=== PATIENT | female | born 1995 | race Two or more races ===

== ENCOUNTER 2020-02-12 01:34 | Emergency (ER) | payer SELFPAY ==
[~2020-02-12] VITALS: Ht 167.6 cm; Wt 63.0 kg
[2020-02-12] MEDS ORDERED: SODIUM CHLORIDE 0.9% 1,000 ML IV ONE (03:04)
[2020-02-12] MEDS ORDERED: ONDANSETRON HCL 4MG/2ML INJ IV STA (03:04)
[2020-02-12] MEDS ORDERED: KETOROLAC 30MG/ML VIAL IV STA (03:04)
[2020-02-12] MEDS ORDERED: FAMOTIDINE 20MG/2ML VIAL IV ONE (03:15)
[2020-02-12 03:22] LABS: BASOPHILS % 0.4 % (0.0-2.0); EOSINOPHILS % 0.4 % (0.0-5.0); HEMATOCRIT. 35.2 % (36.0-48.0); HEMOGLOBIN. 11.8 g/dL (12.0-16.0); LYMPHOCYTES % 10.7 % (20.0-50.0); MEAN CORPUSCULAR HEMOGLOBIN 29.2 pg (28.0-32.0); MEAN CORPUSCULAR VOLUME 87.2 fL (81.0-99.0); MEAN PLATELET VOLUME 9.6 fl (7.4-10.4); MONOCYTES % 12.3 % (2.0-8.0); NEUTROPHILS % 76.2 % (40.0-76.0); PLATELET 313 x1000/uL (130-400); RED BLOOD CELL COUNT 4.03 mill/uL (4.2-5.4); RED CELL DISTRIBUTION WIDTH 14.8 % (11.6-14.6)
[2020-02-12 03:29] LABS: CHLORIDE 107 mEq/L (98-107)
[2020-02-12 03:32] LABS: CLARITY URINE CLOUDY (CLEAR); COLOR URINE YELLOW (YELLOW); KETONES URINE 4+ (NEGATIVE); LEUKOCYTE ESTERASE URINE 1+ (NEGATIVE); NITRITE URINE NEGATIVE (NEGATIVE); OCCULT BLOOD URINE 3+ (NEGATIVE); PROTEIN URINE 2+ (NEGATIVE); SPECIFIC GRAVITY URINE 1.022 (1.005-1.030)
[2020-02-12] MEDS ORDERED: POTASSIUM CHLORIDE 20MEQ TABLET SR PO ONE ×2 (03:45→06:30)
[2020-02-12] MEDS ORDERED: METOCLOPRAMIDE HCL 10MG/2ML VIAL IV SCH (05:00)
[2020-02-12] MEDS ORDERED: ONDANSETRON HCL 4MG/2ML INJ IV SCH (05:00)
[2020-02-12] MEDS ORDERED: VISCOUS LIDOCAINE 2% 15 ML UDC PO ONE (06:15)
[2020-02-12] MEDS ORDERED: LORAZEPAM 2MG/ML CPJ IV ONE (06:15)
[2020-02-12] MEDS ORDERED: MAGNESIUM/ALUMINUM HYDROXIDE/SIMETHICONE 30ML UDC PO ONE (06:15)
[2020-02-12 06:42] VITALS: BP 135/69
== END 2020-02-12 06:47 | disposition home or self-care (01) ==
LOC: ER 01:34
DX: R10.9 Unspecified abdominal pain (principal); R11.2 Nausea with vomiting, unspecified; E86.0 Dehydration; K21.9 Gastro-esophageal reflux disease without esophagitis; E87.6 Hypokalemia; N39.0 Urinary tract infection, site not specified
CPT/HCPCS: 36415; 71045; 80053; 81003; 81025; 83690; 85025; 87086; 93005; 96361; 96374; 96375; 96376; 99285; J1885; J2060; J2405; J2765; J3490; J7030

== ENCOUNTER 2020-02-12 15:54 | Emergency (ER) | payer SELFPAY ==
[~2020-02-12] VITALS: Ht 162.6 cm; Wt 67.0 kg
[2020-02-12 15:55] VITALS: BP 135/74
== END 2020-02-12 19:07 | disposition left against medical advice (07) ==
LOC: ER 15:54
DX: Z53.21 Procedure and treatment not carried out due to patient leaving prior to being seen by health care provider (principal); K21.9 Gastro-esophageal reflux disease without esophagitis
CPT/HCPCS: 93005